=== PATIENT | male | born 1970 | race Caucasian/White ===

== ENCOUNTER 2022-07-15 16:31 | Outpatient (CLI) | payer BC, SELFPAY ==
[2022-07-15 10:26] LABS: Albumin* 4.6 g/dL (3.3-5.0); Chloride* 102 mmol/L (96-114)
[2022-07-15 10:27] LABS: Potassium* 3.7 mmol/L (3.6-5.1); Sodium* 140 mmol/L (135-149)
[2022-07-15 10:29] LABS: Aspartate Amino Transferase* 25 U/L (12-35); Bilirubin Total* 0.5 mg/dL (0.1-1.5); Blood Urea Nitrogen* 16 mg/dL (7-30); Carbon Dioxide* 28 mmol/L (20-32); Cholesterol* 164 mg/dL (90-199); Estimated Glomerular Filt Rate 92 ml/min; Glucose* 51 mg/dL (60-115); Total Protein* 7.5 g/dL (6.0-8.3)
[2022-07-15 10:30] LABS: Alanine Aminotransferase* 19 U/L (4-50); Alkaline Phosphatase* 57 U/L (40-150); Calcium* 9.6 mg/dL (8.4-10.6); HDL Cholesterol* 68 mg/dL (>=40); LDL Cholesterol Calculated 82 mg/dL (<100); Triglycerides* 69 mg/dL (40-149)
[2022-07-15 10:32] LABS: Creatinine Urine 181.2 mg/dL
[2022-07-15 10:35] LABS: Microalbumin Creatinine Ratio 0 mg/g (0-30); Microalbumin Urine < 1 mg/dL
[2022-07-15 10:48] LABS: Vitamin D 25 Hydroxy* 57 ng/mL (30-80)
[2022-07-15 11:00] LABS: PSA Screen* 1.15 ng/mL (0.10-4.00)
[2022-07-15 11:19] LABS: Vitamin B12* 369 pg/mL (243-894)
[2022-07-15 11:41] LABS: Free T4 Free Thyroxine* 0.98 ng/dL (0.70-1.85)
[2022-07-17 02:11] LABS: Testosterone, Adult Male 408 ng/dL (300-890)
== END 2022-07-15 16:32 | disposition home or self-care (01) ==
PROVIDERS: PCP Internal Medicine; Visit Provider Internal Medicine
DX: E53.9 Vitamin B deficiency, unspecified (principal); R53.83 Other fatigue; E10.9 Type 1 diabetes mellitus without complications; E55.9 Vitamin D deficiency, unspecified; Z13.9 Encounter for screening, unspecified
CPT/HCPCS: 80053; 80061; 82043; 82306; 82570; 82607; 84153; 84403; 84439; 84443

== ENCOUNTER 2023-09-13 07:51 | Outpatient (CLI) | payer BC, SELFPAY | END 2023-09-13 07:52 | disposition home or self-care (01) | LOC: NFLDREF 09-14 11:34 | PROVIDERS: PCP Internal Medicine; Referring Provider Internal Medicine; Visit Provider Internal Medicine | DX: Z00.00 Encounter for general adult medical examination without abnormal findings (principal); E10.9 Type 1 diabetes mellitus without complications; R53.83 Other fatigue; E53.9 Vitamin B deficiency, unspecified; E55.9 Vitamin D deficiency, unspecified; Z83.49 Family history of other endocrine, nutritional and metabolic diseases; Z12.5 Encounter for screening for malignant neoplasm of prostate; Z13.6 Encounter for screening for cardiovascular disorders | CPT/HCPCS: 80053; 80061; 82043; 82570; 82607; 84153; 84403; 84439; 84443 ==

== ENCOUNTER 2024-04-20 07:30 | Outpatient (CLI) | payer BC, SELFPAY ==
--- OUTSIDE RECORDS SUMMARY | 2024-04-23 20:24 | XMS_ITS | Clinical Summary ---
Author Organization [facility] Address [address] [place] [address]. [place] [address] Care Team Providers Care Nursing Home Administrator Name Role Phone No Ref-Primary, Physician Primary Care Provider Allergies Active Allergy Reactions Criticality Noted Date Comments Aspirin Hives 09/29/2016 Penicillins 09/29/2016 Medications Medication Sig Dispensed Refills Start Date End Date Status blood glucose monitoring (ACCU-CHEK PRINCESS PLUS) meter device kit U UTD 0 09/17/2016 Active cetirizine (ZYRTEC) 10 MG tablet Take 10 mg by mouth daily Active order for DME Change CPAP settings to auto 4-12 cm/H2O 03/29/2013 Active STATIN NOT PRESCRIBED (INTENTIONAL)Indicati ons:Diabetes mellitus without complication (H) Please choose reason not prescribed, below - patient declines statin 01/12/2019 Active acetone urine (KETOSTIX) test stripIndications:Hype rglycemia,Elevated TSH,Family history of thyroid disease,Diabetes mellitus without complication (H) Use one strip as needed to test urine for ketones. Do not dispense at this time, keep on file 100 each 3 07/13/2019 Active glucagon (GLUCAGON EMERGENCY) 1 MG kitIndications:Diabet es mellitus without complication (H) Inject 1 mg into the muscle once for 1 dose 1 each 07/13/2019 Active blood glucose monitoring (SOFTCLIX) lancetsIndications:Di abetes mellitus without complication (H) TEST TWICE DAILY TO THREE TIMES DAILY 200 each 09/24/2019 Active ACCU-CHEK PRINCESS PLUS test strip TEST TWICE DAILY TO THREE TIMES DAILY 200 strip 3 10/26/2019 Active insulin glargine (LANTUS SOLOSTAR) 100 UNIT/ML penIndications:Chroni c lymphocytic thyroiditis INJECT 16-20 UNITS SUB-Q EVERY 24 HOURS. 15 mL 3 10/30/2020 Active metFORMIN (GLUCOPHAGE-XR) 500 MG 24 hr tabletIndications:Typ e 1 diabetes mellitus without complication (H) TAKE 2 tablets once daily. Do not dispense, keep on file 180 tablet 3 01/12/2021 Active B-D U/F insulin pen needleIndications:Typ e 1 diabetes mellitus without complication (H) USE DIRECTED 100 each 3 11/01/2021 Active rosuvastatin (CRESTOR) 5 MG tabletIndications:Typ e 1 diabetes mellitus without complication (H) TAKE 1 TABLET(5 MG) BY MOUTH DAILY 90 tablet 12/11/2021 Active Active Problems Problem Noted Date Diagnosed Date Chronic lymphocytic thyroiditis 04/20/2017 Type 1 diabetes mellitus without complication Hyperglycemia 09/29/2016 Immunizations Name Administration Dates Next Due TDAP Vaccine (Adacel) 01/14/2011 Family History Medical History Relation Comments Thyroid Disease Brother 2 Cancer Maternal Grandfather Alzheimer Disease Maternal Grandmother Dementia Maternal Grandmother Celiac Disease Mother Diabetes Paternal Grandmother Thyroid Disease Sister Celiac Disease Son 2 Relation Status Comments Brother 1 Alive Brother 2 Alive Daughter Alive Father Maternal Grandfather Maternal Grandmother Mother Alive Paternal Grandfather Paternal Grandmother Sister Alive Son 1 Alive Son 2 Alive Social History Tobacco Use Types Packs/Day Years Used Date Smoking Tobacco: Never Smokeless Tobacco: Never Tobacco Cessation:Counseling Given: Yes Alcohol Use Standard Drinks/Week Comments No 0 (1 standard drink = 0.6 oz pur e alcohol) Adolescent Education Answer Date Record ed Getting School Help Needed Not on file 08/14 Sex and Gender Information Value Date Recorded Sex Assigned at Not on file Gender Identity Not on file Sexual Orientation Not on file Last Filed Vital Signs Vital Sign Reading Time Taken Comments Blood Pressure 137/80 10/26/2019 7:55 AM THREADING MACHINE SETTER Pulse 86 10/26/2019 7:55 AM THREADING MACHINE SETTER Temperature 36.7 ??C (98 ??F) 01/06/2018 9:06 AM THREADING MACHINE SETTER Respiratory Rate 16 10/26/2019 7:55 AM THREADING MACHINE SETTER Oxygen Saturation 98% 01/06/2018 9:06 AM THREADING MACHINE SETTER Inhaled Oxygen Concentration - - Weight 98.4 kg (217 lb) 10/26/2019 7:55 AM THREADING MACHINE SETTER Height 181 cm (5' 11.25) 01/12/2019 8:39 AM THREADING MACHINE SETTER Body Mass Index 30.05 01/12/2019 8:39 AM THREADING MACHINE SETTER Plan of Treatment Health Maintenance Due Date Last Done Comments ADVANCE CARE PLANNING 1971 ANNUAL REVIEW OF HM ORDERS 1971 CT COLONOGRAPHY 1971 FIT 1971 FLEX SIG 1971 YEARLY PREVENTIVE VISIT 1971 sDNA (Cologuard) 1971 Pneumococcal Vaccine: Pediatrics (0 to 5 Years) and At-Risk Patients (6 to 64 Years) (1 of 2 - PCV) 1977 COLONOSCOPY 1981 COLORECTAL CANCER SCREENING 1981 HIV SCREENING 1986 HEPATITIS C SCREENING 1989 HEPATITIS B IMMUNIZATION (1 of 3 - 19+ 3-dose series) 1990 EYE EXAM 12/22/2019 12/22/2018, 11/03/2017 DIABETIC FOOT EXAM 12/29/2019 12/29/2018, 0 01/06/2018, 10/19/2016 A1C 04/26/2020 10/26/2019, 09/0 04/2019, 12/22/2018, Additional history exists BMP 07/13/2020 07/13/2019, 030 12/2017, 01/18/2017, Additional history exists LIPID 07/13/2020 07/13/2019, 12/08, 12/22/2018, Additional history exists MICROALBUMIN 07/13/2020 07/13/2019, 12/08, 01/06/2018, Additional history exists DTAP/TDAP/TD IMMUNIZATION (2 - Td or Tdap) 01/14/2021 01/14/2011 ZOSTER IMMUNIZATION (1 of 2) 2021 COVID-19 Vaccine ( - season) 2023 PHQ-2 (once per calendar year) 2023 INFLUENZA VACCINE (Season Ended) 2024 07/14/2018 (Declined) HPV IMMUNIZATION Aged Out No longer e ligible based on patient's age to complete this topic IPV IMMUNIZATION Aged Out No longer e ligible based on patient's age to complete this topic MENINGITIS IMMUNIZATION Aged Out No l onger eligible based on patient's age to complete this topic RSV MONOCLONAL ANTIBODY Aged Out No l onger eligible based on patient's age to complete this topic Procedures Procedure Name Priority Date/Time Associated Diagnosis Comments HEMOGLOBIN A1C Routine 10/26/2019 7:54 AM THREADING MACHINE SETTER Type 1 diabetes mellitus without complication (H) LIPID REFLEX TO DIRECT LDL PANEL Routine 07/13/2019 8:13 AM CDT Type 1 diabetes mellitus without complication (H) Diabetes mellitus without complication (H) Hyperglycemia Elevated TSH Family history of thyroid disease COMPREHENSIVE METABOLIC PANEL Routine 07/13/2019 8:13 AM CDT Type 1 diabetes mellitus without complication (H) Diabetes mellitus without complication (H) Hyperglycemia Elevated TSH Family history of thyroid disease ALBUMIN RANDOM URINE QUANTITATIVE Routine 07/13/2019 8:12 AM CDT Type 1 diabetes mellitus without complication (H) Diabetes mellitus without complication (H) Hyperglycemia Elevated TSH Family history of thyroid disease from Last 3 Months or Most Recently Relevant to Health Maintenance Results * (ABNORMAL) Hemoglobin A1c (10/26/2019 7:54 AM THREADING MACHINE SETTER) Hemoglobin A1C 6.5(H) 0 - 5.6 % 10/26/2019 8:04 AM THREADING MACHINE SETTER [facility] Comment: Normal <5.7% Prediabetes 5.7-6.4% ??Diabetes 6.5% or higher - adopted from ADA consensus guidelines. Blood specimen (specimen) 10/26/2019 7:54 AM THREADING MACHINE SETTER 10/26/2019 7:55 AM THREADING MACHINE SETTER Nicole Peña APRN INSURANCE ACCOUNT REPRESENTATIVE LAB - BLOOD O RDERABLES [facility] [address] [place] [address] * (ABNORMAL) Lipid panel reflex to direct LDL Fasting (07/13/2019 8:13 AM CDT) Cholesterol 208(H) <200 mg/dL 07/13/2019 2:20 PM CDT [facility] Comment:Desirable: <200 mg/d l Triglycerides 69 <150 mg/dL 07/13/2019 2:20 PM CDT [facility] Comment:Fasting specimen HDL Cholesterol 76 >39 mg/dL 9 2:20 PM CDT [facility] LDL Cholesterol Calculated 118(H) <100 mg/dL 07/13/2019 2:20 PM CDT [facility] Comment: Above desirable: ??100-129 mg/dl Borderline High: ??130-159 mg/dL High: ? 160-189 mg/dL Very high: ? >189 mg/dl Non HDL Cholesterol 132(H) <130 mg/dL 07/13/2019 2:20 PM CDT [facility] Comment: Above Desirable: ??130-159 mg/dl Borderline high: ??160-189 mg/dl High: ? 190-219 mg/dl Very high: ? >219 mg/dl Blood specimen (specimen) 07/13/2019 8:13 AM CDT 07/13/2019 8:14 AM CDT Nicole Peña SUPERVISOR GROWER INSURANCE ACCOUNT REPRESENTATIVE LAB - BLOOD O RDERABLES [facility] [address] [place] [address], [facility] [phone] * (ABNORMAL) Comprehensive metabolic panel (07/13/2019 8:13 AM CDT) Sodium 136 133 - 144 mmol/L 07/13/2019 1:56 PM CDT [facility] Potassium 4.2 3.4 - 5.3 mmol/L 07/13/2019 1:56 PM CDT [facility] Chloride 104 94 - 109 mmol/L 07/13/2019 1:56 PM CDT [facility] Carbon Dioxide 29 20 - 32 mmol/L 07/13/2019 2:20 PM CDT [facility] Anion Gap 3 3 - 14 mmol/L 07/13/2019 2:20 PM CDT [facility] Glucose 95 70 - 99 mg/dL 07/13/2019 2:20 PM [facility] Comment:Fasting specimen Urea Nitrogen 15 7 - 30 mg/dL 07/13/2019 2:20 PM [facility] Creatinine 1.01 0.66 - 1.25 mg/dL 07/13/2019 2:20 PM [facility] GFR Estimate 88 >60 mL/min/{1 .73_m2} 07/13/2019 2:20 PM [facility] Comment: Non GFR Calc Starting 10/24/2018, serum creatinine based estimated GFR (eGFR) will be calculated using the Chronic Kidney Disease Epidemiology Collaboration (CKD-EPI) equation. GFR Estimate If Black >90 >60 mL/min/{1 .73_m2} 07/13/2019 2:20 PM [facility] Comment: GFR Calc Starting 10/24/2018, serum creatinine based estimated GFR (eGFR) will be calculated using the Chronic Kidney Disease Epidemiology Collaboration (CKD-EPI) equation. Calcium 9.1 8.5 - 10.1 mg/dL 07/13/2019 2:20 PM [facility] Bilirubin Total 0.7 0.2 - 1.3 mg/dL 07/13/2019 2:20 PM [facility] Albumin 4.2 3.4 - 5.0 g/dL 07/13/2019 2:20 PM [facility] Protein Total 7.8 6.8 - 8.8 g/dL 07/13/2019 2:20 PM [facility] Alkaline Phosphatase 36(L) 40 - 150 U/L 07/13/2019 2:20 PM [facility] ALT 26 0 - 70 U/L 07/13/2019 2:20 PM [facility] AST 16 0 - 45 U/L 07/13/2019 2:20 PM [facility] Blood specimen (specimen) 07/13/2019 8:13 AM CDT 07/13/2019 8:14 AM CDT Nicole Peña APRN INSURANCE ACCOUNT REPRESENTATIVE LAB - BLOOD O RDERABLES Performing Organization Address City/[facility]/ZIP Co de Phone Number [facility] [address] [place] [address], [facility] [phone] [facility] [address] [address] * Albumin Random Urine Quantitative with Creat Ratio (07/13/2019 8:12 AM CDT) Creatinine Urine 118 mg/dL 07/13/2019 6:06 PM CDT [facility] Albumin Urine mg/L <5 mg/L 07/13/2019 6:13 PM CDT [facility] Albumin Urine mg/g Cr Unable to calculate due to low value 0 - 17 mg/g Cr 07/13/2019 6:13 PM CDT [facility] Urine specimen (specimen) 07/13/2019 8:12 AM CDT 07/13/2019 8:13 AM CDT Nicole Peña SUPERVISOR GROWER INSURANCE ACCOUNT REPRESENTATIVE LAB - URINE O RDERABLES Performing Organization Address City/[facility]/ZIP Co de Phone Number [facility] [address] [place] [phone] [facility] [address] [address], [facility] [phone] from Last 3 Months or Most Recently Relevant to Health Maintenance Care Teams Nursing Home Administrator Relationship Specialty Start Date End Date No Ref-Primary, Physician PCP - General 10/26/19
--- OUTSIDE RECORDS SUMMARY | 2024-04-23 20:24 | XMS_ITS | Referral Summary ---
Author Organization [facility] Address [address] [place] [address]. [place] [address] Care Team Providers Care Director Retirement Name Role Phone No Ref-Primary, Physician Primary [...] Dates Next Due TDAP Vaccine (Adacel) 01/14/2011 Social History Tobacco Use Types Packs/Day Years [...] Comments Blood Pressure 137/80 10/26/2019 7:55 AM PUMP TECHNICIAN Pulse 86 10/26/2019 7:55 AM PUMP TECHNICIAN Temperature 36.7 ??C (98 ??F) 01/06/2018 9:06 AM PUMP TECHNICIAN Respiratory Rate 16 10/26/2019 7:55 AM PUMP TECHNICIAN Oxygen Saturation 98% 01/06/2018 9:06 AM PUMP TECHNICIAN Inhaled Oxygen Concentration - - Weight 98.4 kg (217 lb) 10/26/2019 7:55 AM PUMP TECHNICIAN Height 181 cm (5' 11.25) 01/12/2019 8:39 AM PUMP TECHNICIAN Body Mass Index 30.05 01/12/2019 8:39 AM PUMP TECHNICIAN Plan of Treatment Not on file Procedures Procedure Name Priority Date/Time Associated Diagnosis Comments HEMOGLOBIN A1C Routine 10/26/2019 7:54 AM PUMP TECHNICIAN Type 1 diabetes mellitus without complication (H) [...] * (ABNORMAL) Hemoglobin A1c (10/26/2019 7:54 AM PUMP TECHNICIAN) Hemoglobin A1C 6.5(H) 0 - 5.6 % 10/26/2019 8:[address] [facility] Comment: Normal <5.7% Prediabetes 5.7-6.4% ??Diabetes 6.5% or higher - adopted from ADA consensus guidelines. Blood specimen (specimen) 10/26/2019 7:54 AM PUMP TECHNICIAN 10/26/2019 7:55 AM PUMP TECHNICIAN Nicole Peña APRN TROLLEY OPERATOR LAB - BLOOD O RDERABLES Performing Organization Address City/State/[facility] Co de Phone Number [facility] [address] [place] [address] * (ABNORMAL) Lipid panel reflex to direct LDL Fasting (07/13/2019 8:13 AM CDT) Cholesterol 208(H) <200 mg/dL 07/13/2019 2:20 PM CDT [facility] Comment:Desirable: <200 mg/d l Triglycerides 69 <150 mg/dL 07/13/2019 2:20 PM CDT [facility] Comment:Fasting specimen HDL Cholesterol 76 >39 mg/dL 9 2:20 PM CDT [facility] LDL Cholesterol Calculated 118(H) <100 mg/dL 07/13/2019 2:20 PM CDT [facility] Comment: Above desirable: ??100-129 mg/dl Borderline High: ??130-159 mg/dL High: ? 160-189 mg/dL Very high: ? >189 mg/dl Non HDL Cholesterol 132(H) <130 mg/dL 07/13/2019 2:20 PM CDT [facility] Comment: Above Desirable: ??130-159 mg/dl Borderline high: ??160-189 mg/dl High: ? 190-219 mg/dl Very high: ? >219 mg/dl Blood specimen (specimen) 07/13/2019 8:13 AM CDT 07/13/2019 8:14 AM CDT Nicole Peña SALES OPERATIONS ASSISTANT TROLLEY OPERATOR LAB - BLOOD O RDERABLES Performing Organization Address City/State/[facility] Co de Phone Number [facility] [address] [place] [address], [facility] [phone] * (ABNORMAL) Comprehensive metabolic panel (07/13/2019 8:13 AM CDT) Sodium 136 133 - 144 mmol/L 07/13/2019 1:56 PM CDT [facility] Potassium 4.2 3.4 - 5.3 mmol/L 07/13/2019 1:56 PM CDT [facility] Chloride 104 94 - 109 mmol/L 07/13/2019 1:56 PM CDT [facility] Carbon Dioxide 29 20 - 32 mmol/L 07/13/2019 2:20 PM CDT [facility] Anion Gap 3 3 - 14 mmol/L 07/13/2019 2:20 PM CDT [facility] Glucose 95 70 - 99 mg/dL 07/13/2019 2:20 PM CDT [facility] Comment:Fasting specimen Urea Nitrogen 15 7 - 30 mg/dL 07/13/2019 2:20 PM CDT [facility] Creatinine 1.01 0.66 - 1.25 mg/dL 07/13/2019 2:20 PM T [facility] GFR Estimate 88 >60 mL/min/{1 .73_m2} 07/13/2019 2:20 PM [facility] Comment: Non GFR Calc Starting 10/24/2018, serum creatinine based estimated GFR (eGFR) will be calculated using the Chronic Kidney Disease Epidemiology Collaboration (CKD-EPI) equation. GFR Estimate If Black >90 >60 mL/min/{1 .73_m2} 07/13/2019 2:20 PM T [facility] Comment: GFR Calc Starting 10/24/2018, serum creatinine based estimated GFR (eGFR) will be calculated using the Chronic Kidney Disease Epidemiology Collaboration (CKD-EPI) equation. Calcium 9.1 8.5 - 10.1 mg/dL 07/13/2019 2:20 PM T [facility] Bilirubin Total 0.7 0.2 - 1.3 mg/dL 07/13/2019 2:20 PM [facility] Albumin 4.2 3.4 - 5.0 g/dL 07/13/2019 2:20 PM [facility] Protein Total 7.8 6.8 - 8.8 g/dL 07/13/2019 2:20 PM [facility] Alkaline Phosphatase 36(L) 40 - 150 U/L 07/13/2019 2:20 PM [facility] ALT 26 0 - 70 U/L 07/13/2019 2:20 PM [facility] AST 16 0 - 45 U/L 07/13/2019 2:20 PM [facility] Blood specimen (specimen) 07/13/2019 8:13 AM CDT 07/13/2019 8:14 AM CDT Nicole Peña APRN TROLLEY OPERATOR LAB - BLOOD O RDERABLES [facility] [address] [address], [facility] [phone] [facility] [address], [place] [address] * Albumin Random Urine Quantitative with Creat Ratio (07/13/2019 8:12 AM CDT) Creatinine Urine 118 mg/dL 07/13/2019 6:06 PM CDT [facility] Albumin Urine mg/L <5 mg/L 07/13/2019 6:13 PM CDT [facility] Albumin Urine mg/g Cr Unable to calculate due to low value 0 - 17 mg/g Cr 07/13/2019 6:13 PM CDT [facility] Urine specimen (specimen) 07/13/2019 8:12 AM CDT 07/13/2019 8:13 AM CDT Nicole Peña SALES OPERATIONS ASSISTANT TROLLEY OPERATOR LAB - URINE O RDERABLES [facility] [address] [place] [address] [facility] [address] [address] [phone] from Last 3 Months or Most Recently Relevant to Health Maintenance Care Teams Director Retirement Relationship Specialty Start Date End Date No Ref-Primary, Physician PCP - General 10/26/19
--- OUTSIDE RECORDS SUMMARY | 2024-04-23 20:24 | XMS_ITS | Clinical Summary ---
Author Organization [facility] Address [address] [address] Care Team Providers Care Software Development Advisor Name Role Phone Guido Garcia MD Primary Care Provider [phone] Source Comments You are receiving this document as you are listed as the primary care provider,follow-up provider, or the patient has been referred to you for consultation.This is in compliance with the Medicare and[facility] Hospitalca[facility] EHR Incentive Program,which states Providers who transition their patient to another setting of careor provider of care or refers their patient to another provider of care shouldprovide summary care record for each transition of care or referral. [place] Allergies Active Allergy Reactions Criticality Noted Date Comments Aspirin 01/04/2003 hives Ibuprofen 05/03/2006 Penicillins 01/04/2003 hives Medications Medication Sig Dispensed Refills Start Date End Date Status omeprazole ([employer] OMEPRAZOLE) 20 MG enteric coated tablet Take 1 tablet by mouth daily (every 24 hours). LW Addl Instr:Indicated for: Acid Reflux 30 12 05/03/2006 Active cetirizine (AKA ZYRTEC) 10 MG tablet Take 1 tablet by mouth daily as needed. LW Addl Instr:Indicated for: Allergies 90 3 02/18/2006 Active EPINEPHrine (AUVI-Q) 0.3 MG/0.3ML injection Inject 1 Dose into the muscle as needed. LW Addl Instr:May repeat. Indicated for: Acute Allergic Reaction 1 10/15/2008 Active Additional Information Patient not taking.Reported on 01/05/2022 LANTUS SOLOSTAR 100 UNIT/ML pen Inject 16 Units subcutaneously daily. 05/17/2020 Active metFORMIN XR (GLUCOPHAGE XR) 500 MG 24 hour release tablet Take 1 Tablet by mouth daily. 04/15/2020 Active rosuvastatin (CRESTOR) 5 MG tablet Take 1 Tablet by mouth daily. 04/03/2020 Active Active Problems Problem Noted Date Diagnosed Date Esophageal reflux 05/03/2006 Overview: LW Onset: [id number] ; Gastroesophageal Reflux Disease Allergic rhinitis 04/13/2003 Overview: Rhinitis Allergic NOS Resolved Problems Problem Noted Date Diagnosed Date Resolved Date Sarcoidosis 03/02/2004 02/18/2006 Overview: LW Onset: [id number] ; Sarcoidosis Pulmonary Immunizations Name Administration Dates Next Due TDAP (ADACEL) 05/03/2006 Social History Tobacco Use Types Packs/Day Years Used Date Smoking Tobacco: Never Smokeless Tobacco: Current Chew Tobacco Cessation:Counseling Given: Yes Sex and Gender Information Value Date Recorded Sex Assigned at Not on file Gender Identity Not on file Sexual Orientation Not on file Last Filed Vital Signs Vital Sign Reading Time Taken Comments Blood Pressure 131/98 05/25/2022 10:16 AM CDT Pulse 72 05/25/2022 10:16 AM CDT Temperature 36.7 ??C (98.1 ??F) 05/25/2022 1 0:16 AM CDT Respiratory Rate 20 05/25/2022 10:1 6 AM CDT Oxygen Saturation 100% 05/25/2022 10: 16 AM CDT Inhaled Oxygen Concentration - - Weight 116.1 kg (255 lb 15. 6 oz) 02/18/2010 10:33 AM CDT C: 116.1kg Height 181.6 cm (5' 11.5) 10/15/2008 1 :05 PM CURRENCY EXCHANGE SPECIALIST C: 181.6cm Body Mass Index 35.2 10/15/2008 1:05 PM CURRENCY EXCHANGE SPECIALIST Plan of Treatment Health Maintenance Due Date Last Done Comments Colon Cancer Screening Plan Due 1971 Hep C Screening (Preventive Services) 1971 PSA Screening Discussion 1971 HIV Screening (Preventive Services) 1987 Adult Preventive Visit 1989 HepB (1) 1990 Cholesterol 2006 DTaP/Tdap/Td (3 - Tdap) 01/14/2021 01/15/20 11, 05/03/2006 Zoster/Shingles (1 of 2) 2021 COVID-19 Vaccine ( - 2022-2 4 season) 2023 Influenza (Season Ended) 2024 HepA Aged Out No longer eligi ble based on patient's age to complete this topic Hib Aged Out No longer eligi ble based on patient's age to complete this topic IPV (Polio) Aged Out No longer eligi ble based on patient's age to complete this topic MCV4 Aged Out No longer eligi ble based on patient's age to complete this topic Pneumococcal Aged Out No longer eligi ble based on patient's age to complete this topic Care Teams Software Development Advisor Relationship Specialty Start Date End Date Guido Garcia MD [address] [place] [address] PCP - General 02/08/11
--- OUTSIDE RECORDS SUMMARY | 2024-04-23 20:24 | XMS_ITS | Clinical Summary ---
Author Organization [employer] [facility] Address [place], [place] [address] Care Team Providers Care Urgent Care Technician Name Role Phone Pcp, No Primary Care Provider Unavailabl e Allergies Active Allergy Reactions Criticality Noted Date Comments Aspirin Hives 03/29/2013 Penicillins Hives 03/29/2013 Medications Medication Sig Dispensed Refills Start Date End Date Status omeprazole (PRILOSEC) 10 mg capsule Take 2 capsules by mouth once daily before a meal. 0 03/29/2013 Active fluticasone, 50 mcg per actuation, nasal (FLONASE) spray Inhale 1 [place] into both nostrils once daily. 1 Bottle 0 03/29/2013 Active medication order composer Change CPAP settings to auto 4-12 cm/H2O 1 unit 0 03/29/2013 Active cetirizine (ZYRTEC) 10 mg tablet Take 1 tablet by mouth once daily. 0 10/15/2013 Active predniSONE (DELTASONE) 10 mg tablet Take 1 tablet by mouth once daily with a meal. 30 tablet 0 10/22/2013 Active Active Problems Problem Noted Date Diagnosed Date KALIA 12/01/2012 AHI-23 12/04/2012 Immunizations Name Administration Dates Next Due Tdap 01/14/2011,05/03/2006 Social History Tobacco Use Types Packs/Day Years Used Date Smoking Tobacco: Former Smokeless Tobacco: Former Chew Tobacco Cessation:Counseling Given: Yes Alcohol Use Standard Drinks/Week Comments No 0 (1 standard drink = 0.6 oz pur e alcohol) occas Sex and Gender Information Value Date Recorded Sex Assigned at Not on file Gender Identity Not on file Sexual Orientation Not on file Obstetrics History Last Filed Vital Signs Vital Sign Reading Time Taken Comments Blood Pressure 123/81 10/22/2013 11:13 AM TESTING CONSULTANT Pulse 86 10/22/2013 11:13 AM TESTING CONSULTANT Temperature 37.1 ??C (98.7 ??F) 10/22/2013 11:[address] Respiratory Rate - - Oxygen Saturation 98% 10/22/2013 11:13 AM TESTING CONSULTANT Inhaled Oxygen Concentration - - Weight 106.1 kg (234 lb) 10/22/2013 11:13 AM TESTING CONSULTANT Height 180.3 cm (5' 10.98) 10/15/2013 8:[address] Body Mass Index 32.65 10/15/2013 8:34 AM TESTING CONSULTANT Plan of Treatment Health Maintenance Due Date Last Done Comments Depression screening for age 12+ 1983 HIV for age 15-65 1986 BMI (ht and wt on same day) for age 18+ 1989 Hepatitis C screening for ag e 18-79 1989 Colonoscopy through age 75 2016 Lipids for age 45-75 2016 Tetanus booster 01/14/2021 01/14/2011, 05/03/2006 Zoster (shingles) series for age 50+ (1 of 2) 2021 COVID-19 vaccine series ( - 2022- season) 2023 Influenza for age 50-64 07/08/2024 Tdap Completed 01/14/2011, 05/03/2006 Pneumococcal series for age 6-64 Aged Out No longer eligible b ased on patient's age to complete this topic Care Teams Urgent Care Technician Relationship Specialty Start Date End Date Pcp, No . PCP - General 11/30/12
== END 2024-04-20 07:31 | disposition home or self-care (01) ==
LOC: NFLDREF 04-23 20:22
PROVIDERS: PCP Internal Medicine; Referring Provider Internal Medicine; Visit Provider Internal Medicine
DX: E10.9 Type 1 diabetes mellitus without complications (principal); Z79.4 Long term (current) use of insulin; Z13.220 Encounter for screening for lipoid disorders
CPT/HCPCS: 80053; 80061; 82043; 82570

== ENCOUNTER 2025-04-24 14:55 | Outpatient (CLI) | payer BC, SELFPAY | END 2025-04-24 14:56 | disposition home or self-care (01) | LOC: NFLDREF 14:56 | PROVIDERS: PCP Internal Medicine; Visit Provider Internal Medicine | DX: Z00.00 Encounter for general adult medical examination without abnormal findings (principal); E10.9 Type 1 diabetes mellitus without complications; E55.9 Vitamin D deficiency, unspecified; Z12.5 Encounter for screening for malignant neoplasm of prostate; Z13.6 Encounter for screening for cardiovascular disorders; Z79.4 Long term (current) use of insulin; Z79.899 Other long term (current) drug therapy | CPT/HCPCS: 80053; 80061; G0103 ==

== ENCOUNTER 2025-05-01 08:38 | Outpatient (CLI) | payer BC, SELFPAY | END 2025-05-01 08:39 | disposition home or self-care (01) | PROVIDERS: PCP Internal Medicine; Visit Provider Internal Medicine | DX: E10.9 Type 1 diabetes mellitus without complications (principal); E53.9 Vitamin B deficiency, unspecified | CPT/HCPCS: 82043; 82570; 82607 ==